=== PATIENT | male | born 1935 | race Caucasian/White ===

== ENCOUNTER 2023-02-03 14:06 | Inpatient (IN) | payer OTHER ==
[~2023-02-03] VITALS: Ht 177.8 cm; Wt 89.4 kg
[2023-02-03 15:24] LABS: EOSINOPHILS % (AUTO) 0.1 % (0.0-6.0); HEMATOCRIT 25 % (39-51); HEMOGLOBIN 7.7 g/dL (13.5-17.5); LYMPHOCYTES # (AUTO) 1.2 K/uL (0.8-4.8); LYMPHOCYTES % (AUTO) 7.8 % (20.0-44.0); MEAN CORPUSCULAR HEMOGLOBIN 31 PG (26.0-33.0); MEAN CORPUSCULAR HGB CONC 31 g/dl (31.0-36.0); MEAN CORPUSCULAR VOLUME 100 fL (80-96); MONOCYTES % (AUTO) 20.1 % (2.0-12.0); NEUTROPHILS # (AUTO) 10.8 K/uL (1.8-8.9); RED BLOOD CELL COUNT(AUTO) 2.48 MIL/uL (4.5-6.0); RED CELL DISTRIBUTION WIDTH 24.1 % (11.5-15.0); WHITE BLOOD COUNT (AUTO) 14.9 K/uL (4.3-11.0)
[2023-02-03 15:27] LABS: PLATELET COUNT (AUTO) 35 K/uL (150-450)
[2023-02-03 15:35] LABS: INR 2.86 (0.91-1.10); PARTIAL THROMBOPLASTIN TIME 34.7 SEC (24.3-34.3); PROTHROMBIN TIME 28.3 SECS (9.2-11.1)
[2023-02-03 15:44] LABS: CALCIUM, SERUM 8.6 mg/dL (8.5-10.1); CARBON DIOXIDE 13 mmol/L (21-32); CHLORIDE 102 mmol/L (98-107); CREATININE 2.8 mg/dL (0.6-1.3); GLUCOSE 53 mg/dL (74-106); SODIUM SERUM 139 mmol/L (136-145)
[2023-02-03 15:54] LABS: LACTIC ACID 6.1 mmol/L (0.4-2.0)
[2023-02-03 16:04] LABS: ALANINE AMINOTRANSFERASE 576 U/L (12-78); ALBUMIN 3.5 g/dL (3.4-5.0); ALKALINE PHOSPHATASE 208 U/L (46-116); BILIRUBIN,DIRECT 1.5 mg/dL (0.0-0.2); BILIRUBIN,TOTAL 3.5 mg/dL (0.2-1.0); TOTAL PROTEIN, SERUM 6.7 g/dL (6.4-8.2); UREA NITROGEN, BLOOD 85 mg/dL (7-18)
[2023-02-03 16:08] LABS: ASPARTATE AMINOTRANSFERASE > 999 U/L (15-37)
[2023-02-03] MEDS ORDERED: VANCOMYCIN 1 GM in IV D5W 250 ML IV ONE (16:30)
[2023-02-03] MEDS ORDERED: IV NS 0.9% 1,000 ML BAG IV ONE (16:30)
[2023-02-03] MEDS ORDERED: CEFEPIME 1 GM in IV D5W 50 ML IV ONE (16:30)
[2023-02-03 18:12] LABS: SERUM AMMONIA 44 umol/L (11-32)
[2023-02-03 18:16] LABS: ACETAMINOPHEN 0 ug/ml (10-30)
[2023-02-03 18:27] LABS: BAND % (MANUAL) 6 % (0.0-5.0); LYMPHOCYTES % (MANUAL) 6 % (16-48); METAMYELOCYTES % 2 % (0-0); MONOCYTES % (MANUAL) 16 % (0-11.0); MYELOCYTES % 3 % (0-0); NEUTROPHILS % (MANUAL) 67 (42-76); PLATELET ESTIMATE DECREASED
[2023-02-03 18:29] LABS: ANISOCYTOSIS 2+
[2023-02-03] MEDS ORDERED: CEFEPIME 1 GM VIAL IV SCH (23:30)
[2023-02-03] MEDS ORDERED: IV NS 0.9% 1,000 ML BAG IV PRN (23:30)
[2023-02-03] MEDS ORDERED: SODIUM POLYSTYRENE SULFONATE 15 G/60 ML BOTTLE PO STA (23:35)
[2023-02-03] MEDS ORDERED: IV NS 0.9% 1,000 ML IV PRN (23:45)
[2023-02-03 23:53] LABS: CARBON DIOXIDE 15 mmol/L (21-32); CHLORIDE 104 mmol/L (98-107); CREATININE 2.8 mg/dL (0.6-1.3); GLUCOSE 79 mg/dL (74-106); POTASSIUM 5.9 mmol/L (3.5-5.1); SODIUM SERUM 137 mmol/L (136-145)
[2023-02-04] VITALS (25 sets, daily range): BP systolic 96–120; BP diastolic 62–101; TEMP 93–97.5; O2SAT 75–100
[2023-02-04] MEDS ORDERED: IV NS 0.9% 1,000 ML BAG IV PRN
[2023-02-04] MEDS ORDERED: Calcium Gluconate 0.465 MEQ/ML VIAL IV ONE
[2023-02-04] MEDS ORDERED: MORPHINE SULFATE INJ 4 MG/ML DISP.SYRIN IV PRN
[2023-02-04] MEDS ORDERED: MORPHINE SULFATE INJ 2 MG/ML DISP.SYRIN IV PRN
[2023-02-04] MEDS ORDERED: INSULIN REGULAR, HUMAN 100 UNIT/ML 10 ML VIAL IV ONE
[2023-02-04] MEDS ORDERED: ONDANSETRON HCL/PF 4 MG/2 ML VIAL IV PRN
[2023-02-04 00:14] LABS: UREA NITROGEN, BLOOD 89 mg/dL (7-18)
[2023-02-04] MEDS ORDERED: SODIUM POLYSTYRENE SULFONATE 15 G/60 ML BOTTLE PO ONE (00:30)
[2023-02-04] MEDS ORDERED: DEXTROSE 50%-WATER 50 ML DISP.SYRIN IVP ONE ×4 (02:00→21:30)
[2023-02-04 03:57] LABS: BASOPHILS # (AUTO) 0.1 K/uL (0.0-0.2); BASOPHILS % (AUTO) 0.5 % (0.0-2.0); EOSINOPHILS # (AUTO) 0.2 K/uL (0.0-0.7); EOSINOPHILS % (AUTO) 0.9 % (0.0-6.0); HEMATOCRIT 22 % (39-51); LYMPHOCYTES # (AUTO) 0.8 K/uL (0.8-4.8); LYMPHOCYTES % (AUTO) 4.6 % (20.0-44.0); MEAN CORPUSCULAR HEMOGLOBIN 31 PG (26.0-33.0); MEAN CORPUSCULAR HGB CONC 31 g/dl (31.0-36.0); MEAN CORPUSCULAR VOLUME 100 fL (80-96); MONOCYTES # (AUTO) 2.4 K/uL (0.1-1.30); MONOCYTES % (AUTO) 13.4 % (2.0-12.0); NEUTROPHILS # (AUTO) 14.1 K/uL (1.8-8.9); NEUTROPHILS % (AUTO) 80.6 % (43.0-81.0); RED BLOOD CELL COUNT(AUTO) 2.24 MIL/uL (4.5-6.0); RED CELL DISTRIBUTION WIDTH 24.1 % (11.5-15.0); WHITE BLOOD COUNT (AUTO) 17.6 K/uL (4.3-11.0)
[2023-02-04 04:02] LABS: HEMOGLOBIN 6.9 g/dL (13.5-17.5)
[2023-02-04 04:03] LABS: PLATELET COUNT (AUTO) 34 K/uL (150-450)
[2023-02-04] MEDS: BLOOD SUGAR DIAGNOSTIC 1 EACH STRIP IN SCH ×6 (04:11→21:38)
[2023-02-04 04:16] LABS: ALANINE AMINOTRANSFERASE 700 U/L (12-78); ALBUMIN 3.2 g/dL (3.4-5.0); ALKALINE PHOSPHATASE 219 U/L (46-116); BILIRUBIN,TOTAL 3.4 mg/dL (0.2-1.0); CALCIUM, SERUM 7.8 mg/dL (8.5-10.1); CARBON DIOXIDE 18 mmol/L (21-32); CHLORIDE 103 mmol/L (98-107); CREATININE 2.9 mg/dL (0.6-1.3); GLUCOSE 180 mg/dL (74-106); POTASSIUM 5.6 mmol/L (3.5-5.1); SODIUM SERUM 138 mmol/L (136-145); TOTAL PROTEIN, SERUM 6.2 g/dL (6.4-8.2)
[2023-02-04 04:25] LABS: UREA NITROGEN, BLOOD 93 mg/dL (7-18)
[2023-02-04] MEDS: IV D5W 1,000 ML IV PRN ×2 (04:40→19:05)
[2023-02-04] MEDS ORDERED: CEFEPIME 1 GM in IV D5W 50 ML IV SCH (05:00)
[2023-02-04] MEDS ORDERED: CEFEPIME 1 GM VIAL ONE (05:28)
[2023-02-04 06:40] LABS: BAND % (MANUAL) 20 % (0.0-5.0); LYMPHOCYTES % (MANUAL) 6 % (16-48); MONOCYTES % (MANUAL) 7 % (0-11.0); MYELOCYTES % 2 % (0-0); NEUTROPHILS % (MANUAL) 65 (42-76); PLATELET ESTIMATE DECREASED
[2023-02-04 06:41] LABS: OVALOCYTES 1+
[2023-02-04] MEDS ORDERED: FUROSEMIDE 20 MG/2 ML VIAL IV ONE (10:00)
[2023-02-04 10:07] LABS: ABG BASE EXCESS -12.5 mmol/L; ABG OXYGEN SATURATION 99.6 % (92.0-98.5); ABG PH 7.293 (7.350-7.450); ABG PO2 323.4 mmHg (75.0-100.0); AaDO2 362.6 mmHg; COHb 0.1 % (0.5-1.5); MetHb 0.3 % (0.0-1.5); O2Hb 99.2 % (94.0-97.0); SITE, ABG Left Radial; VENT MODE, BG 15L NRB
[2023-02-04 10:15] LABS: IRON, SERUM 211 ug/dl (50-175); TOTAL IRON BINDING CAPACITY 214 ug/dl (250-450)
[2023-02-04] MEDS: TAMSULOSIN 0.4 MG CAP.SR.24H PO SCH (10:30)
[2023-02-04] MEDS: ACETYLCYSTEINE 10% SOLN 400 MG/4 ML VIAL NEB SCH ×4 (10:30→23:14)
[2023-02-04] MEDS: FINASTERIDE (5 MG) 5 MG TABLET PO SCH (10:30)
[2023-02-04 10:38] LABS: ASPARTATE AMINOTRANSFERASE > 1000 U/L (15-37)
[2023-02-04 10:50] LABS: FERRITIN 12447 ng/mL (8-388)
[2023-02-04 12:07] LABS: PROSTATE SPECIFIC ANTIGEN SCR 1981.7 ng/mL (0.00-4.00)
[2023-02-04] MEDS ORDERED: SODIUM POLYSTYRENE SULF. PWD 15 GM UDC PO ONE (13:00)
[2023-02-04] MEDS: ALBUTEROL HALF STRENGTH 1.25 MG/3 ML VIAL.NEB NEB SCH ×3 (13:28→19:58)
[2023-02-04] MEDS: IPRATROPIUM NEB FS 0.5 MG/2.5 ML AMPUL.NEB NEB SCH ×3 (13:28→19:58)
[2023-02-04] MEDS: CEFEPIME 1 GM in IV D5W 50 ML IV SCH ×2 (13:46→21:12)
[2023-02-04 15:50] LABS: CALCIUM, SERUM 7.4 mg/dL (8.5-10.1); CARBON DIOXIDE 16 mmol/L (21-32); CHLORIDE 105 mmol/L (98-107); CREATININE 3.3 mg/dL (0.6-1.3); GLUCOSE 226 mg/dL (74-106); POTASSIUM 5.6 mmol/L (3.5-5.1); SODIUM SERUM 139 mmol/L (136-145)
[2023-02-04 16:02] LABS: UREA NITROGEN, BLOOD 100 mg/dL (7-18)
[2023-02-04 19:50] LABS: ABG BASE EXCESS -11.9 mmol/L; ABG OXYGEN SATURATION 97.8 % (92.0-98.5); ABG PCO2 35.9 mmHg (35.0-45.0); ABG PH 7.229 (7.350-7.450); ABG PO2 140.8 mmHg (75.0-100.0); ABG TOTAL HEMOGLOBIN 9.1 G/dL (13.5-18.0); AaDO2 189.8 mmHg; COHb 0.3 % (0.5-1.5); MetHb 0.4 % (0.0-1.5); O2Hb 97.1 % (94.0-97.0); SITE, ABG Left Radial; VENT MODE, BG SM
[2023-02-04] MEDS ORDERED: CEFEPIME 2 GM in IV D5W 100 ML IV SCH (21:00)
[2023-02-04] MEDS ORDERED: DEXTROSE 50%-WATER 50 ML DISP.SYRIN ONE (21:27)
[2023-02-04] MEDS: ALBUTEROL FS 2.5 MG/0.5 ML VIAL.NEB NEB PRN (23:14)
[2023-02-05] VITALS (53 sets, daily range): BP systolic 82–126; BP diastolic 57–94; TEMP 96.8–98; O2SAT 80–100
[2023-02-05] MEDS: BLOOD SUGAR DIAGNOSTIC 1 EACH STRIP IN SCH ×6 (01:09→21:08)
[2023-02-05] MEDS: IPRATROPIUM NEB FS 0.5 MG/2.5 ML AMPUL.NEB NEB SCH ×4 (01:19→19:25)
[2023-02-05] MEDS: ALBUTEROL HALF STRENGTH 1.25 MG/3 ML VIAL.NEB NEB SCH ×4 (01:19→19:25)
[2023-02-05 04:38] LABS: BASOPHILS # (AUTO) 0.1 K/uL (0.0-0.2); BASOPHILS % (AUTO) 0.5 % (0.0-2.0); EOSINOPHILS # (AUTO) 0.1 K/uL (0.0-0.7); EOSINOPHILS % (AUTO) 0.6 % (0.0-6.0); HEMATOCRIT 24 % (39-51); HEMOGLOBIN 7.6 g/dL (13.5-17.5); LYMPHOCYTES % (AUTO) 6.8 % (20.0-44.0); MEAN CORPUSCULAR HEMOGLOBIN 31 PG (26.0-33.0); MEAN CORPUSCULAR HGB CONC 31 g/dl (31.0-36.0); MEAN CORPUSCULAR VOLUME 97 fL (80-96); MONOCYTES # (AUTO) 0.5 K/uL (0.1-1.30); MONOCYTES % (AUTO) 3.1 % (2.0-12.0); RED BLOOD CELL COUNT(AUTO) 2.49 MIL/uL (4.5-6.0); RED CELL DISTRIBUTION WIDTH 22.2 % (11.5-15.0); WHITE BLOOD COUNT (AUTO) 14.6 K/uL (4.3-11.0)
[2023-02-05 04:57] LABS: ALANINE AMINOTRANSFERASE 694 U/L (12-78); ALBUMIN 2.9 g/dL (3.4-5.0); ALKALINE PHOSPHATASE 224 U/L (46-116); BILIRUBIN,TOTAL 2.9 mg/dL (0.2-1.0); CALCIUM, SERUM 6.7 mg/dL (8.5-10.1); CARBON DIOXIDE 16 mmol/L (21-32); CHLORIDE 103 mmol/L (98-107); CREATININE 3.2 mg/dL (0.6-1.3); GLUCOSE 129 mg/dL (74-106); MAGNESIUM 2.6 mg/dL (1.8-2.4); SODIUM SERUM 138 mmol/L (136-145); TOTAL PROTEIN, SERUM 5.8 g/dL (6.4-8.2)
[2023-02-05 05:03] LABS: PLATELET COUNT (AUTO) 23 K/uL (150-450)
[2023-02-05] MEDS: CEFEPIME 1 GM in IV D5W 50 ML IV SCH ×3 (05:09→21:08)
[2023-02-05 05:12] LABS: UREA NITROGEN, BLOOD 101 mg/dL (7-18)
[2023-02-05 05:13] LABS: ASPARTATE AMINOTRANSFERASE > 1000 U/L (15-37); PHOSPHORUS 9.2 mg/dL (2.5-4.9)
[2023-02-05] MEDS: IV D5W 1,000 ML IV PRN (05:23)
[2023-02-05] MEDS ORDERED: VANCOMYCIN 0.75 GM in IV D5W 250 ML IV SCH (06:00)
[2023-02-05] MEDS: ALBUTEROL FS 2.5 MG/0.5 ML VIAL.NEB NEB PRN ×3 (07:23→08:00)
[2023-02-05] MEDS: ACETYLCYSTEINE 10% SOLN 400 MG/4 ML VIAL NEB SCH ×3 (07:23→23:21)
[2023-02-05 07:41] LABS: ANISOCYTOSIS 1+; BAND % (MANUAL) 24 % (0.0-5.0); LYMPHOCYTES % (MANUAL) 9 % (16-48); METAMYELOCYTES % 1 % (0-0); MONOCYTES % (MANUAL) 7 % (0-11.0); MYELOCYTES % 2 % (0-0); NEUTROPHILS % (MANUAL) 57 (42-76); OVALOCYTES 1+; PLATELET ESTIMATE DECREASED
[2023-02-05] MEDS: SODIUM BICARBONATE IV SCH ×2 (08:19→19:07)
[2023-02-05] MEDS: D5W IV SCH ×2 (08:19→19:07)
[2023-02-05] MEDS: TAMSULOSIN 0.4 MG CAP.SR.24H PO SCH (08:57)
[2023-02-05] MEDS: FINASTERIDE (5 MG) 5 MG TABLET PO SCH (08:58)
[2023-02-05] MEDS ORDERED: LORAZEPAM 1 MG TABLET PO PRN (10:30)
[2023-02-05 10:58] LABS: ABG BASE EXCESS -9.5 mmol/L; ABG PCO2 26.3 mmHg (35.0-45.0); ABG PH 7.365 (7.350-7.450); ABG PO2 99.6 mmHg (75.0-100.0); ABG TOTAL HEMOGLOBIN 8.3 G/dL (13.5-18.0); COHb 0.6 % (0.5-1.5); MetHb 0.2 % (0.0-1.5); O2Hb 96.2 % (94.0-97.0); SITE, ABG Right Femoral; VENT MODE, BG nasal cannula
[2023-02-05] MEDS ORDERED: AMIODARONE 150 MG in IV D5W 100 ML IV ONE (11:00)
[2023-02-05] MEDS: AMIODARONE 450 MG in IV D5W 241 ML IV PRN ×2 (11:45→21:11)
[2023-02-05] MEDS ORDERED: GLUCAGON,HUMAN RECOMBINANT 1 MG/VIAL VIAL IM ONE (14:00)
[2023-02-05] MEDS ORDERED: DEXTROSE 50%-WATER 50 ML DISP.SYRIN IVP ONE (14:30)
[2023-02-05 20:58] LABS: THYROID STIMULATING HORMONE 3.078 uIU/mL (0.358-3.74)
[2023-02-06] VITALS (32 sets, daily range): BP systolic 74–146; BP diastolic 44–86; TEMP 96.8–98.1; O2SAT 94–100
[2023-02-06] MEDS: BLOOD SUGAR DIAGNOSTIC 1 EACH STRIP IN SCH ×6 (01:01→20:26)
[2023-02-06] MEDS: IPRATROPIUM NEB FS 0.5 MG/2.5 ML AMPUL.NEB NEB SCH ×4 (01:11→19:12)
[2023-02-06] MEDS: ALBUTEROL HALF STRENGTH 1.25 MG/3 ML VIAL.NEB NEB SCH ×4 (01:11→19:12)
[2023-02-06 02:07] LABS: HBSAG SCREEN Negative (Negative); HEPATITIS A AB, IgM Negative (Negative); HEPATITIS B CORE AB, IgM Negative (Negative)
[2023-02-06] MEDS: CEFEPIME 1 GM in IV D5W 50 ML IV SCH ×3 (05:00→20:26)
[2023-02-06 05:22] LABS: CALCIUM, SERUM 6.5 mg/dL (8.5-10.1); CARBON DIOXIDE 18 mmol/L (21-32); CHLORIDE 98 mmol/L (98-107); CREATININE 3.1 mg/dL (0.6-1.3); GLUCOSE 140 mg/dL (74-106); POTASSIUM 4.5 mmol/L (3.5-5.1); SODIUM SERUM 135 mmol/L (136-145)
[2023-02-06 05:38] LABS: UREA NITROGEN, BLOOD 101 mg/dL (7-18)
[2023-02-06] MEDS: D5W IV SCH ×2 (06:46→16:15)
[2023-02-06] MEDS: SODIUM BICARBONATE IV SCH ×2 (06:46→16:15)
[2023-02-06] MEDS: ACETYLCYSTEINE 10% SOLN 400 MG/4 ML VIAL NEB SCH ×3 (07:08→23:00)
[2023-02-06] MEDS: Fluoxetine 10 mg capsule PO SCH (09:00)
[2023-02-06] MEDS: FINASTERIDE (5 MG) 5 MG TABLET PO SCH (09:00)
[2023-02-06] MEDS: TAMSULOSIN 0.4 MG CAP.SR.24H PO SCH (09:00)
[2023-02-06 10:07] LABS: CREATININE KINASE (CK),MB 59.6 ng/mL (0.0-10.4)
[2023-02-06 10:50] LABS: APPEARANCE,URINE CLEAR (CLEAR); BILIRUBIN,URINE NEGATIVE (NEGATIVE); BLOOD, URINE 2+ Ery/uL (NEGATIVE); COLOR,URINE YELLOW (YELLOW); KETONES,URINE TRACE mg/dL (NEGATIVE); LEUKOCYTE ESTERASE ,URINE NEGATIVE (NEGATIVE); NITRITE, URINE NEGATIVE (NEGATIVE); PH,URINE 5.5 (5.0-8.0); PROTEIN,URINE 1+ mg/dl (NEGATIVE); UGLUCOSE NEGATIVE (NEGATIVE); UROBILINOGEN,URINE 0.2 EU/dL (0.2)
[2023-02-06 11:11] LABS: CREATININE, URINE 72.8 MG/DL (30.0-125.0); URINE TOTAL PROTEIN 74.5 mg/dL (0-11.9)
[2023-02-06 11:27] LABS: BASOPHILS # (AUTO) 0.1 K/uL (0.0-0.2); BASOPHILS % (AUTO) 0.5 % (0.0-2.0); EOSINOPHILS # (AUTO) 0.1 K/uL (0.0-0.7); EOSINOPHILS % (AUTO) 0.7 % (0.0-6.0); HEMATOCRIT 23 % (39-51); HEMOGLOBIN 7.2 g/dL (13.5-17.5); LYMPHOCYTES # (AUTO) 0.8 K/uL (0.8-4.8); LYMPHOCYTES % (AUTO) 5.5 % (20.0-44.0); MEAN CORPUSCULAR HEMOGLOBIN 31 PG (26.0-33.0); MEAN CORPUSCULAR HGB CONC 31 g/dl (31.0-36.0); MEAN CORPUSCULAR VOLUME 99 fL (80-96); MONOCYTES # (AUTO) 0.3 K/uL (0.1-1.30); MONOCYTES % (AUTO) 2.3 % (2.0-12.0); NEUTROPHILS # (AUTO) 13.7 K/uL (1.8-8.9); RED BLOOD CELL COUNT(AUTO) 2.32 MIL/uL (4.5-6.0); RED CELL DISTRIBUTION WIDTH 23.1 % (11.5-15.0)
[2023-02-06 11:30] LABS: PLATELET COUNT (AUTO) 15 K/uL (150-450)
[2023-02-06 12:00] LABS: ADD URINE CULTURE NO; BACTERIA,URINE 1+ /HPF (None Seen); MUCUS,URINE Few /LPF (None Seen); SQUAMOUS EPITHELIAL CELL,UR None Seen /HPF (None Seen); WBC,URINE NONE SEEN /HPF (0-3)
[2023-02-06 12:09] LABS: BAND % (MANUAL) 14 % (0.0-5.0); LYMPHOCYTES % (MANUAL) 8 % (16-48); MONOCYTES % (MANUAL) 11 % (0-11.0); MYELOCYTES % 4 % (0-0); NEUTROPHILS % (MANUAL) 63 (42-76)
[2023-02-06 12:10] LABS: ANISOCYTOSIS 1+; PLATELET ESTIMATE DECREASED; TEAR DROP CELLS 1+
[2023-02-06 12:12] LABS: OVALOCYTES 1+
[2023-02-06] MEDS: DIGOXIN INJ 0.5 MG/2 ML AMPUL IV SCH ×2 (12:36→17:44)
[2023-02-06] MEDS: DEXTROSE 50%-WATER 50 ML DISP.SYRIN IVP PRN ×2 (17:57→20:26)
[2023-02-07] VITALS (33 sets, daily range): BP systolic 103–144; BP diastolic 54–104; TEMP 96.5–98; O2SAT 96–100
[2023-02-07] MEDS: DIGOXIN INJ 0.5 MG/2 ML AMPUL IV SCH (00:03)
[2023-02-07] MEDS: ALBUTEROL HALF STRENGTH 1.25 MG/3 ML VIAL.NEB NEB SCH ×4 (01:30→19:45)
[2023-02-07] MEDS: IPRATROPIUM NEB FS 0.5 MG/2.5 ML AMPUL.NEB NEB SCH ×4 (01:31→19:45)
[2023-02-07] MEDS: BLOOD SUGAR DIAGNOSTIC 1 EACH STRIP IN SCH ×6 (01:40→20:35)
[2023-02-07] MEDS: DEXTROSE 50%-WATER 50 ML DISP.SYRIN IVP PRN (01:40)
[2023-02-07] MEDS: D5W IV SCH (02:44)
[2023-02-07] MEDS: SODIUM BICARBONATE IV SCH ×3 (02:44→20:35)
[2023-02-07] MEDS: CEFEPIME 1 GM in IV D5W 50 ML IV SCH ×3 (05:17→20:35)
[2023-02-07 05:35] LABS: CARBON DIOXIDE 21 mmol/L (21-32); CHLORIDE 97 mmol/L (98-107); CREATININE 2.9 mg/dL (0.6-1.3); GLUCOSE 128 mg/dL (74-106); POTASSIUM 3.6 mmol/L (3.5-5.1); SODIUM SERUM 132 mmol/L (136-145)
[2023-02-07 05:36] LABS: UREA NITROGEN, BLOOD 103 mg/dL (7-18)
[2023-02-07 07:20] LABS: BASOPHILS % (AUTO) 0.1 % (0.0-2.0); EOSINOPHILS # (AUTO) 0.1 K/uL (0.0-0.7); EOSINOPHILS % (AUTO) 0.5 % (0.0-6.0); HEMATOCRIT 22 % (39-51); LYMPHOCYTES # (AUTO) 1.2 K/uL (0.8-4.8); LYMPHOCYTES % (AUTO) 7.6 % (20.0-44.0); MEAN CORPUSCULAR HEMOGLOBIN 31 PG (26.0-33.0); MEAN CORPUSCULAR HGB CONC 32 g/dl (31.0-36.0); MEAN CORPUSCULAR VOLUME 94 fL (80-96); MONOCYTES # (AUTO) 0.2 K/uL (0.1-1.30); NEUTROPHILS # (AUTO) 14.3 K/uL (1.8-8.9); NEUTROPHILS % (AUTO) 90.8 % (43.0-81.0); RED BLOOD CELL COUNT(AUTO) 2.29 MIL/uL (4.5-6.0); RED CELL DISTRIBUTION WIDTH 21.4 % (11.5-15.0); WHITE BLOOD COUNT (AUTO) 15.8 K/uL (4.3-11.0)
[2023-02-07 07:24] LABS: PLATELET COUNT (AUTO) 14 K/uL (150-450)
[2023-02-07] MEDS: ACETYLCYSTEINE 10% SOLN 400 MG/4 ML VIAL NEB SCH ×3 (08:05→23:07)
[2023-02-07] MEDS: TAMSULOSIN 0.4 MG CAP.SR.24H PO SCH (09:00)
[2023-02-07] MEDS: FINASTERIDE (5 MG) 5 MG TABLET PO SCH (09:00)
[2023-02-07] MEDS: Fluoxetine 10 mg capsule PO SCH (09:00)
[2023-02-07] MEDS: DEXTROSE IV SCH ×2 (09:35→20:35)
[2023-02-07 10:33] LABS: BAND % (MANUAL) 12 % (0.0-5.0); LYMPHOCYTES % (MANUAL) 8 % (16-48); MONOCYTES % (MANUAL) 4 % (0-11.0); MYELOCYTES % 2 % (0-0); NEUTROPHILS % (MANUAL) 74 (42-76); PLATELET ESTIMATE DECREASED
[2023-02-07 10:34] LABS: ANISOCYTOSIS 2+
[2023-02-07 10:35] LABS: OVALOCYTES 1+; TEAR DROP CELLS 1+
[2023-02-07 11:26] LABS: ABG BASE EXCESS -4.4 mmol/L; ABG OXYGEN SATURATION 97.3 % (92.0-98.5); ABG PCO2 36.1 mmHg (35.0-45.0); ABG PH 7.371 (7.350-7.450); ABG PO2 113.5 mmHg (75.0-100.0); AaDO2 43.5 mmHg; COHb 0.3 % (0.5-1.5); MetHb 0.2 % (0.0-1.5); O2Hb 96.8 % (94.0-97.0); VENT MODE, BG N/C
[2023-02-08] VITALS (38 sets, daily range): BP systolic 103–154; BP diastolic 59–89; TEMP 97.1–98.3; O2SAT 85–100
[2023-02-08] MEDS: BLOOD SUGAR DIAGNOSTIC 1 EACH STRIP IN SCH ×6 (00:25→21:10)
[2023-02-08] MEDS: ALBUTEROL HALF STRENGTH 1.25 MG/3 ML VIAL.NEB NEB SCH ×4 (00:49→19:37)
[2023-02-08] MEDS: IPRATROPIUM NEB FS 0.5 MG/2.5 ML AMPUL.NEB NEB SCH ×4 (00:49→19:37)
[2023-02-08] MEDS: CEFEPIME 1 GM in IV D5W 50 ML IV SCH (04:52)
[2023-02-08] MEDS: SODIUM BICARBONATE IV SCH ×2 (06:30→18:14)
[2023-02-08] MEDS: DEXTROSE IV SCH ×2 (06:30→18:14)
[2023-02-08 06:33] LABS: CARBON DIOXIDE 21 mmol/L (21-32); CHLORIDE 96 mmol/L (98-107); CREATININE 2.9 mg/dL (0.6-1.3); GLUCOSE 129 mg/dL (74-106); SODIUM SERUM 131 mmol/L (136-145)
[2023-02-08 07:05] LABS: UREA NITROGEN, BLOOD 108 mg/dL (7-18)
[2023-02-08] MEDS: ACETYLCYSTEINE 10% SOLN 400 MG/4 ML VIAL NEB SCH ×3 (07:34→23:41)
[2023-02-08 07:57] LABS: EOSINOPHILS % (AUTO) 0.2 % (0.0-6.0); HEMATOCRIT 23 % (39-51); HEMOGLOBIN 7.5 g/dL (13.5-17.5); MEAN CORPUSCULAR HEMOGLOBIN 31 PG (26.0-33.0); MEAN CORPUSCULAR HGB CONC 33 g/dl (31.0-36.0); MEAN CORPUSCULAR VOLUME 94 fL (80-96); MONOCYTES # (AUTO) 13.1 K/uL (0.1-1.30); MONOCYTES % (AUTO) 91.1 % (2.0-12.0); NEUTROPHILS # (AUTO) 0.2 K/uL (1.8-8.9); NEUTROPHILS % (AUTO) 1.7 % (43.0-81.0); RED BLOOD CELL COUNT(AUTO) 2.43 MIL/uL (4.5-6.0); RED CELL DISTRIBUTION WIDTH 21.3 % (11.5-15.0); WHITE BLOOD COUNT (AUTO) 14.4 K/uL (4.3-11.0)
[2023-02-08 08:07] LABS: PLATELET COUNT (AUTO) 30 K/uL (150-450)
[2023-02-08] MEDS: Fluoxetine 10 mg capsule PO SCH (09:00)
[2023-02-08] MEDS: TAMSULOSIN 0.4 MG CAP.SR.24H PO SCH (09:00)
[2023-02-08] MEDS: FINASTERIDE (5 MG) 5 MG TABLET PO SCH (09:00)
[2023-02-08] MEDS ORDERED: POTASSIUM CL. PREMIX PERIPHER. 50 ML IV SCH (10:00)
[2023-02-08 12:11] LABS: BAND % (MANUAL) 6 % (0.0-5.0); LYMPHOCYTES % (MANUAL) 8 % (16-48); MONOCYTES % (MANUAL) 21 % (0-11.0); NEUTROPHILS % (MANUAL) 65 (42-76)
[2023-02-08 12:13] LABS: ANISOCYTOSIS 2+; OVALOCYTES 1+; PLATELET ESTIMATE DECREASED
[2023-02-08] MEDS ORDERED: CEFEPIME 2 GM in IV D5W 100 ML IV SCH (15:00)
[2023-02-09] VITALS (32 sets, daily range): BP systolic 99–141; BP diastolic 50–114; TEMP 97–98.2; O2SAT 77–100
[2023-02-09] MEDS: IPRATROPIUM NEB FS 0.5 MG/2.5 ML AMPUL.NEB NEB SCH ×4 (01:22→19:47)
[2023-02-09] MEDS: ALBUTEROL HALF STRENGTH 1.25 MG/3 ML VIAL.NEB NEB SCH ×4 (01:22→19:47)
[2023-02-09] MEDS: BLOOD SUGAR DIAGNOSTIC 1 EACH STRIP IN SCH ×6 (01:26→21:21)
[2023-02-09] MEDS: DEXTROSE IV SCH ×2 (03:40→15:29)
[2023-02-09] MEDS: SODIUM BICARBONATE IV SCH ×2 (03:40→15:29)
[2023-02-09 06:17] LABS: CALCIUM, SERUM 7.3 mg/dL (8.5-10.1); CARBON DIOXIDE 24 mmol/L (21-32); CHLORIDE 92 mmol/L (98-107); CREATININE 3.2 mg/dL (0.6-1.3); GLUCOSE 207 mg/dL (74-106); SODIUM SERUM 130 mmol/L (136-145)
[2023-02-09 06:42] LABS: UREA NITROGEN, BLOOD 110 mg/dL (7-18)
[2023-02-09] MEDS: ACETYLCYSTEINE 10% SOLN 400 MG/4 ML VIAL NEB SCH ×3 (06:51→23:35)
[2023-02-09] MEDS: Fluoxetine 10 mg capsule PO SCH (08:17)
[2023-02-09] MEDS: TAMSULOSIN 0.4 MG CAP.SR.24H PO SCH (08:17)
[2023-02-09] MEDS: FINASTERIDE (5 MG) 5 MG TABLET PO SCH (08:17)
[2023-02-09 09:57] LABS: BASOPHILS % (AUTO) 0.2 % (0.0-2.0); EOSINOPHILS # (AUTO) 0.1 K/uL (0.0-0.7); EOSINOPHILS % (AUTO) 0.8 % (0.0-6.0); HEMATOCRIT 24 % (39-51); HEMOGLOBIN 7.8 g/dL (13.5-17.5); LYMPHOCYTES # (AUTO) 1.3 K/uL (0.8-4.8); LYMPHOCYTES % (AUTO) 9.4 % (20.0-44.0); MEAN CORPUSCULAR HEMOGLOBIN 30 PG (26.0-33.0); MEAN CORPUSCULAR HGB CONC 33 g/dl (31.0-36.0); MEAN CORPUSCULAR VOLUME 93 fL (80-96); MONOCYTES # (AUTO) 1.3 K/uL (0.1-1.30); MONOCYTES % (AUTO) 9.8 % (2.0-12.0); NEUTROPHILS # (AUTO) 10.8 K/uL (1.8-8.9); NEUTROPHILS % (AUTO) 79.8 % (43.0-81.0); RED BLOOD CELL COUNT(AUTO) 2.57 MIL/uL (4.5-6.0); RED CELL DISTRIBUTION WIDTH 21.6 % (11.5-15.0); WHITE BLOOD COUNT (AUTO) 13.5 K/uL (4.3-11.0)
[2023-02-09 10:05] LABS: PLATELET COUNT (AUTO) 33 K/uL (150-450)
[2023-02-09 10:28] LABS: BAND % (MANUAL) 3 % (0.0-5.0); LYMPHOCYTES % (MANUAL) 3 % (16-48); MONOCYTES % (MANUAL) 20 % (0-11.0); MYELOCYTES % 4 % (0-0); NEUTROPHILS % (MANUAL) 70 (42-76); PLATELET ESTIMATE DECREASED
[2023-02-09 10:29] LABS: ANISOCYTOSIS 1+; OVALOCYTES 1+
[2023-02-09] MEDS: POTASSIUM CL. PREMIX PERIPHER. 50 ML IV SCH ×4 (12:36→15:32)
[2023-02-09] MEDS ORDERED: CEFEPIME 1 GM in IV D5W 50 ML IV SCH (15:00)
[2023-02-10] VITALS (31 sets, daily range): BP systolic 97–143; BP diastolic 56–83; TEMP 97–97.8; O2SAT 91–100
[2023-02-10] MEDS: SODIUM BICARBONATE IV SCH ×3 (00:35→19:58)
[2023-02-10] MEDS: DEXTROSE IV SCH ×3 (00:35→19:58)
[2023-02-10] MEDS: BLOOD SUGAR DIAGNOSTIC 1 EACH STRIP IN SCH ×6 (01:08→20:39)
[2023-02-10] MEDS: IPRATROPIUM NEB FS 0.5 MG/2.5 ML AMPUL.NEB NEB SCH ×4 (01:50→19:50)
[2023-02-10] MEDS: ALBUTEROL HALF STRENGTH 1.25 MG/3 ML VIAL.NEB NEB SCH ×4 (01:50→19:50)
[2023-02-10 05:11] LABS: CALCIUM, SERUM 7.9 mg/dL (8.5-10.1); CARBON DIOXIDE 28 mmol/L (21-32); CHLORIDE 96 mmol/L (98-107); CREATININE 2.7 mg/dL (0.6-1.3); GLUCOSE 141 mg/dL (74-106); SODIUM SERUM 133 mmol/L (136-145); UREA NITROGEN, BLOOD 73 mg/dL (7-18)
[2023-02-10 05:14] LABS: BASOPHILS % (AUTO) 0.1 % (0.0-2.0); EOSINOPHILS # (AUTO) 0.1 K/uL (0.0-0.7); EOSINOPHILS % (AUTO) 0.5 % (0.0-6.0); HEMATOCRIT 23 % (39-51); HEMOGLOBIN 7.5 g/dL (13.5-17.5); LYMPHOCYTES # (AUTO) 1.2 K/uL (0.8-4.8); LYMPHOCYTES % (AUTO) 9.8 % (20.0-44.0); MEAN CORPUSCULAR HEMOGLOBIN 31 PG (26.0-33.0); MEAN CORPUSCULAR HGB CONC 33 g/dl (31.0-36.0); MEAN CORPUSCULAR VOLUME 93 fL (80-96); MONOCYTES # (AUTO) 0.7 K/uL (0.1-1.30); MONOCYTES % (AUTO) 5.9 % (2.0-12.0); NEUTROPHILS # (AUTO) 10.4 K/uL (1.8-8.9); NEUTROPHILS % (AUTO) 83.7 % (43.0-81.0); RED BLOOD CELL COUNT(AUTO) 2.42 MIL/uL (4.5-6.0); RED CELL DISTRIBUTION WIDTH 21.1 % (11.5-15.0); WHITE BLOOD COUNT (AUTO) 12.4 K/uL (4.3-11.0)
[2023-02-10 05:16] LABS: PLATELET COUNT (AUTO) 19 K/uL (150-450)
[2023-02-10 05:37] LABS: POTASSIUM 2.5 mmol/L (3.5-5.1)
[2023-02-10] MEDS: ACETYLCYSTEINE 10% SOLN 400 MG/4 ML VIAL NEB SCH ×3 (07:03→23:51)
[2023-02-10 07:25] LABS: BAND % (MANUAL) 8 % (0.0-5.0); LYMPHOCYTES % (MANUAL) 11 % (16-48); MONOCYTES % (MANUAL) 13 % (0-11.0); NEUTROPHILS % (MANUAL) 68 (42-76)
[2023-02-10 07:26] LABS: ANISOCYTOSIS 2+; PLATELET ESTIMATE DECREASED
[2023-02-10 07:28] LABS: HYPOCHROMASIA 1+
[2023-02-10 07:29] LABS: TEAR DROP CELLS 1+
[2023-02-10] MEDS: FINASTERIDE (5 MG) 5 MG TABLET PO SCH (08:13)
[2023-02-10] MEDS: TAMSULOSIN 0.4 MG CAP.SR.24H PO SCH (08:13)
[2023-02-10] MEDS: Fluoxetine 10 mg capsule PO SCH (08:13)
[2023-02-10 08:52] LABS: ABG BASE EXCESS 1.6 mmol/L; ABG OXYGEN SATURATION 96.2 % (92.0-98.5); ABG PCO2 38.7 mmHg (35.0-45.0); ABG PH 7.442 (7.350-7.450); ABG PO2 88.9 mmHg (75.0-100.0); ABG TOTAL HEMOGLOBIN 8.5 G/dL (13.5-18.0); AaDO2 65.1 mmHg; COHb 0.3 % (0.5-1.5); MetHb 0.3 % (0.0-1.5); O2Hb 95.6 % (94.0-97.0); SITE, ABG Right Radial
[2023-02-10] MEDS ORDERED: POTASSIUM CHLORIDE 20 MEQ TAB.PRT.SR PO SCH (09:00)
[2023-02-10] MEDS: POTASSIUM CL. PREMIX PERIPHER. 50 ML IV SCH ×10 (09:46→20:39)
[2023-02-11] VITALS (21 sets, daily range): BP systolic 111–138; BP diastolic 45–83; TEMP 97.2–98; O2SAT 90–100
[2023-02-11] MEDS: BLOOD SUGAR DIAGNOSTIC 1 EACH STRIP IN SCH ×6 (01:16→21:00)
[2023-02-11] MEDS: ALBUTEROL HALF STRENGTH 1.25 MG/3 ML VIAL.NEB NEB SCH ×4 (01:34→20:13)
[2023-02-11] MEDS: IPRATROPIUM NEB FS 0.5 MG/2.5 ML AMPUL.NEB NEB SCH ×4 (01:34→20:13)
[2023-02-11 04:26] LABS: CALCIUM, SERUM 8.2 mg/dL (8.5-10.1); CARBON DIOXIDE 30 mmol/L (21-32); CHLORIDE 98 mmol/L (98-107); CREATININE 2.3 mg/dL (0.6-1.3); GLUCOSE 138 mg/dL (74-106); POTASSIUM 3.3 mmol/L (3.5-5.1); SODIUM SERUM 134 mmol/L (136-145); UREA NITROGEN, BLOOD 52 mg/dL (7-18)
[2023-02-11] MEDS: SODIUM BICARBONATE IV SCH (06:52)
[2023-02-11] MEDS: DEXTROSE IV SCH (06:52)
[2023-02-11] MEDS: ACETYLCYSTEINE 10% SOLN 400 MG/4 ML VIAL NEB SCH ×3 (06:55→23:20)
[2023-02-11] MEDS: FINASTERIDE (5 MG) 5 MG TABLET PO SCH (09:20)
[2023-02-11] MEDS: TAMSULOSIN 0.4 MG CAP.SR.24H PO SCH (09:20)
[2023-02-11] MEDS: Fluoxetine 10 mg capsule PO SCH (09:20)
[2023-02-11 09:22] LABS: BASOPHILS % (AUTO) 0.1 % (0.0-2.0); EOSINOPHILS # (AUTO) 0.1 K/uL (0.0-0.7); EOSINOPHILS % (AUTO) 0.7 % (0.0-6.0); HEMATOCRIT 23 % (39-51); HEMOGLOBIN 7.4 g/dL (13.5-17.5); LYMPHOCYTES # (AUTO) 1.3 K/uL (0.8-4.8); LYMPHOCYTES % (AUTO) 12.1 % (20.0-44.0); MEAN CORPUSCULAR HEMOGLOBIN 31 PG (26.0-33.0); MEAN CORPUSCULAR HGB CONC 33 g/dl (31.0-36.0); MEAN CORPUSCULAR VOLUME 93 fL (80-96); MONOCYTES # (AUTO) 1.4 K/uL (0.1-1.30); MONOCYTES % (AUTO) 13.4 % (2.0-12.0); NEUTROPHILS # (AUTO) 7.9 K/uL (1.8-8.9); NEUTROPHILS % (AUTO) 73.7 % (43.0-81.0); RED BLOOD CELL COUNT(AUTO) 2.43 MIL/uL (4.5-6.0); RED CELL DISTRIBUTION WIDTH 21.5 % (11.5-15.0); WHITE BLOOD COUNT (AUTO) 10.8 K/uL (4.3-11.0)
[2023-02-11 09:28] LABS: PLATELET COUNT (AUTO) 17 K/uL (150-450)
[2023-02-11] MEDS: POTASSIUM CHLORIDE 20 MEQ TAB.PRT.SR PO SCH ×2 (10:00→11:00)
[2023-02-11] MEDS: POTASSIUM CL. PREMIX PERIPHER. 50 ML IV SCH ×4 (11:39→15:59)
[2023-02-11 12:47] LABS: ANISOCYTOSIS 1+; BAND % (MANUAL) 5 % (0.0-5.0); EOSINOPHILS % (MANUAL) 1 % (0-4); LYMPHOCYTES % (MANUAL) 9 % (16-48); MONOCYTES % (MANUAL) 19 % (0-11.0); MYELOCYTES % 3 % (0-0); NEUTROPHILS % (MANUAL) 63 (42-76)
[2023-02-12] VITALS (13 sets, daily range): BP systolic 124–150; BP diastolic 72–80; TEMP 97.5–97.9; O2SAT 95–100
[2023-02-12] MEDS: BLOOD SUGAR DIAGNOSTIC 1 EACH STRIP IN SCH ×6 (01:00→20:15)
[2023-02-12] MEDS: ALBUTEROL HALF STRENGTH 1.25 MG/3 ML VIAL.NEB NEB SCH ×4 (02:16→19:39)
[2023-02-12] MEDS: IPRATROPIUM NEB FS 0.5 MG/2.5 ML AMPUL.NEB NEB SCH ×4 (02:16→19:39)
[2023-02-12] MEDS: DEXTROSE 50%-WATER 50 ML DISP.SYRIN IVP PRN ×2 (06:42→20:15)
[2023-02-12 06:57] LABS: BASOPHILS % (AUTO) 0.1 % (0.0-2.0); EOSINOPHILS # (AUTO) 0.1 K/uL (0.0-0.7); EOSINOPHILS % (AUTO) 0.5 % (0.0-6.0); HEMATOCRIT 24 % (39-51); HEMOGLOBIN 8.1 g/dL (13.5-17.5); LYMPHOCYTES # (AUTO) 1.1 K/uL (0.8-4.8); LYMPHOCYTES % (AUTO) 10.1 % (20.0-44.0); MEAN CORPUSCULAR HEMOGLOBIN 31 PG (26.0-33.0); MEAN CORPUSCULAR HGB CONC 33 g/dl (31.0-36.0); MEAN CORPUSCULAR VOLUME 93 fL (80-96); MONOCYTES # (AUTO) 0.4 K/uL (0.1-1.30); MONOCYTES % (AUTO) 3.8 % (2.0-12.0); NEUTROPHILS # (AUTO) 9.3 K/uL (1.8-8.9); NEUTROPHILS % (AUTO) 85.5 % (43.0-81.0); RED BLOOD CELL COUNT(AUTO) 2.63 MIL/uL (4.5-6.0); RED CELL DISTRIBUTION WIDTH 21.8 % (11.5-15.0); WHITE BLOOD COUNT (AUTO) 10.9 K/uL (4.3-11.0)
[2023-02-12 07:00] LABS: CALCIUM, SERUM 8.3 mg/dL (8.5-10.1); CARBON DIOXIDE 28 mmol/L (21-32); CHLORIDE 96 mmol/L (98-107); CREATININE 2.8 mg/dL (0.6-1.3); GLUCOSE 72 mg/dL (74-106); POTASSIUM 4.1 mmol/L (3.5-5.1); SODIUM SERUM 134 mmol/L (136-145); UREA NITROGEN, BLOOD 57 mg/dL (7-18)
[2023-02-12 07:22] LABS: PLATELET COUNT (AUTO) 19 K/uL (150-450)
[2023-02-12] MEDS: ACETYLCYSTEINE 10% SOLN 400 MG/4 ML VIAL NEB SCH ×2 (07:37→15:30)
[2023-02-12 08:11] LABS: ANISOCYTOSIS 2+; BAND % (MANUAL) 12 % (0.0-5.0); EOSINOPHILS % (MANUAL) 2 % (0-4); LYMPHOCYTES % (MANUAL) 15 % (16-48); METAMYELOCYTES % 1 % (0-0); MONOCYTES % (MANUAL) 11 % (0-11.0); MYELOCYTES % 1 % (0-0); NEUTROPHILS % (MANUAL) 58 (42-76); PLATELET ESTIMATE DECREASED
[2023-02-12] MEDS: TAMSULOSIN 0.4 MG CAP.SR.24H PO SCH (08:40)
[2023-02-12] MEDS: FINASTERIDE (5 MG) 5 MG TABLET PO SCH (08:40)
[2023-02-12] MEDS: Fluoxetine 10 mg capsule PO SCH (08:41)
[2023-02-13] VITALS (15 sets, daily range): BP systolic 101–129; BP diastolic 53–112; TEMP 96.9–100.4; O2SAT 80–100
[2023-02-13] MEDS: ACETYLCYSTEINE 10% SOLN 400 MG/4 ML VIAL NEB SCH ×3 (00:04→14:31)
[2023-02-13] MEDS: ALBUTEROL HALF STRENGTH 1.25 MG/3 ML VIAL.NEB NEB SCH ×4 (02:01→20:33)
[2023-02-13] MEDS: IPRATROPIUM NEB FS 0.5 MG/2.5 ML AMPUL.NEB NEB SCH ×4 (02:01→20:33)
[2023-02-13] MEDS: BLOOD SUGAR DIAGNOSTIC 1 EACH STRIP IN SCH ×6 (02:04→20:45)
[2023-02-13] MEDS: DEXTROSE 50%-WATER 50 ML DISP.SYRIN IVP PRN (03:58)
[2023-02-13 07:27] LABS: BASOPHILS % (AUTO) 0.2 % (0.0-2.0); EOSINOPHILS # (AUTO) 0.1 K/uL (0.0-0.7); EOSINOPHILS % (AUTO) 0.5 % (0.0-6.0); HEMATOCRIT 23 % (39-51); HEMOGLOBIN 7.5 g/dL (13.5-17.5); LYMPHOCYTES # (AUTO) 1.2 K/uL (0.8-4.8); LYMPHOCYTES % (AUTO) 10.7 % (20.0-44.0); MEAN CORPUSCULAR HEMOGLOBIN 31 PG (26.0-33.0); MEAN CORPUSCULAR HGB CONC 33 g/dl (31.0-36.0); MEAN CORPUSCULAR VOLUME 94 fL (80-96); MONOCYTES % (AUTO) 0.1 % (2.0-12.0); NEUTROPHILS # (AUTO) 9.9 K/uL (1.8-8.9); NEUTROPHILS % (AUTO) 88.5 % (43.0-81.0); RED BLOOD CELL COUNT(AUTO) 2.46 MIL/uL (4.5-6.0); RED CELL DISTRIBUTION WIDTH 20.9 % (11.5-15.0); WHITE BLOOD COUNT (AUTO) 11.3 K/uL (4.3-11.0)
[2023-02-13 07:35] LABS: CALCIUM, SERUM 8.6 mg/dL (8.5-10.1); CARBON DIOXIDE 30 mmol/L (21-32); CHLORIDE 99 mmol/L (98-107); CREATININE 2.8 mg/dL (0.6-1.3); GLUCOSE 119 mg/dL (74-106); MAGNESIUM 2.1 mg/dL (1.8-2.4); PHOSPHORUS 4.9 mg/dL (2.5-4.9); POTASSIUM 3.7 mmol/L (3.5-5.1); SODIUM SERUM 138 mmol/L (136-145); UREA NITROGEN, BLOOD 46 mg/dL (7-18)
[2023-02-13 07:48] LABS: PLATELET COUNT (AUTO) 18 K/uL (150-450)
[2023-02-13] MEDS: Fluoxetine 10 mg capsule PO SCH (09:00)
[2023-02-13] MEDS: TAMSULOSIN 0.4 MG CAP.SR.24H PO SCH (09:00)
[2023-02-13] MEDS: FINASTERIDE (5 MG) 5 MG TABLET PO SCH (09:00)
[2023-02-13] MEDS ORDERED: NEPRO 1,000 ML BOTTLE GT PRN (11:00)
[2023-02-13] MEDS: METOPROLOL TARTRATE 50 MG TABLET PO SCH ×2 (13:47→20:29)
[2023-02-13 15:54] LABS: ANISOCYTOSIS 1+; BAND % (MANUAL) 7 % (0.0-5.0); LYMPHOCYTES % (MANUAL) 16 % (16-48); MONOCYTES % (MANUAL) 9 % (0-11.0); NEUTROPHILS % (MANUAL) 68 (42-76); PLATELET ESTIMATE DECRE; TARGET CELLS 1+
[2023-02-14] VITALS (18 sets, daily range): BP systolic 0–129; BP diastolic 0–85; TEMP 97.2–98.8; O2SAT 0–100
[2023-02-14] MEDS: BLOOD SUGAR DIAGNOSTIC 1 EACH STRIP IN SCH ×2 (00:26→05:16)
[2023-02-14] MEDS: IPRATROPIUM NEB FS 0.5 MG/2.5 ML AMPUL.NEB NEB SCH ×2 (02:13→07:35)
[2023-02-14] MEDS: ALBUTEROL HALF STRENGTH 1.25 MG/3 ML VIAL.NEB NEB SCH ×2 (02:13→07:35)
[2023-02-14] MEDS: ACETYLCYSTEINE 10% SOLN 400 MG/4 ML VIAL NEB SCH ×2 (02:14→07:35)
[2023-02-14 07:00] LABS: ABG BASE EXCESS 4.2 mmol/L; ABG OXYGEN SATURATION 96.6 % (92.0-98.5); ABG OXYGEN SATURATION 99.6 % (92.0-98.5); ABG PCO2 30.3 mmHg (35.0-45.0); ABG PCO2 77.4 mmHg (35.0-45.0); ABG PH 7.215 (7.350-7.450); ABG PH 7.558 (7.350-7.450); ABG PO2 105.1 mmHg (75.0-100.0); ABG PO2 253.9 mmHg (75.0-100.0); ABG TOTAL HEMOGLOBIN 8.1 G/dL (13.5-18.0); ABG TOTAL HEMOGLOBIN 8.5 G/dL (13.5-18.0); AaDO2 428.8 mmHg; AaDO2 530.5 mmHg; COHb 0.2 % (0.5-1.5); MetHb 0.4 % (0.0-1.5); SITE, ABG Right Radial; VENT MODE, BG NRB 100%; VENT MODE, BG NRB MASK
[2023-02-14] MEDS ORDERED: ROCURONIUM BROMIDE 50 MG/5 ML IV ONE (07:20)
[2023-02-14] MEDS ORDERED: EPINEPHRINE (1:10,000) SYRINGE 1 MG/10 ML DISP.SYRIN IVP ONE (07:20)
[2023-02-14] MEDS ORDERED: SODIUM BICARBONATE SYR 50 MEQ/50 ML DISP.SYRIN IV ONE (07:20)
[2023-02-14] MEDS ORDERED: ETOMIDATE 2 MG/ML VIAL IV ONE (07:20)
[2023-02-14] MEDS ORDERED: PHENYLEPHRINE 100 MG in IV NS 0.9% 240 ML IV PRN (08:00)
[2023-02-14] MEDS ORDERED: PROSOURCE / PROSTAT (PYXIS) 30 ML UDC PO SCH (09:00)
[2023-02-14] MEDS ORDERED: DC PROPOFOL WHEN EXTUBATED XX PRN (10:00)
[2023-02-16 01:58] LABS: ABG BASE EXCESS 0.9 mmol/L; ABG OXYGEN SATURATION 94.5 % (92.0-98.5); ABG PH 7.389 (7.350-7.450); ABG PO2 77.6 mmHg (75.0-100.0); ABG TOTAL HEMOGLOBIN 7.7 G/dL (13.5-18.0); AaDO2 591.4 mmHg; COHb 0.3 % (0.5-1.5); MetHb 0.2 % (0.0-1.5); PEEP,BG 0 cm H2O; SITE, ABG Left Femoral; VT, ABG 450 mL
== END 2023-02-14 11:45 | DRG 871 ==
LOC: ER 14:08 → MEDSG1 19:57 → TELE1 23:21 → TELE-TD 02-04 10:14 → ICU 02-04 10:29 → TELE-TD 02-11 07:39 → TELE1 02-12 06:22 → ICU 02-14 07:13
PROVIDERS: ADMIT Internal Medicine; ATTEND Internal Medicine
PROC: 30233N1 Transfusion of Nonautologous Red Blood Cells into Peripheral Vein, Percutaneous Approach (ICD-10-PCS; principal; 2023-02-04)
PROC: 05H933Z Insertion of Infusion Device into Right Brachial Vein, Percutaneous Approach (ICD-10-PCS; 2023-02-05)
PROC: 30233R1 Transfusion of Nonautologous Platelets into Peripheral Vein, Percutaneous Approach (ICD-10-PCS; 2023-02-06)
PROC: 06HY33Z Insertion of Infusion Device into Lower Vein, Percutaneous Approach (ICD-10-PCS; 2023-02-08)
PROC: 5A1D70Z Performance of Urinary Filtration, Intermittent, Less than 6 Hours Per Day (ICD-10-PCS; 2023-02-09)
PROC: 5A1935Z Respiratory Ventilation, Less than 24 Consecutive Hours (ICD-10-PCS; 2023-02-14)
PROC: 0BH17EZ Insertion of Endotracheal Airway into Trachea, Via Natural or Artificial Opening (ICD-10-PCS; 2023-02-14)
PROC: 5A2204Z Restoration of Cardiac Rhythm, Single (ICD-10-PCS; 2023-02-14)
DX: A41.9 Sepsis, unspecified organism (principal); E43 Unspecified severe protein-calorie malnutrition; I21.A1 Myocardial infarction type 2; J15.9 Unspecified bacterial pneumonia; K72.00 Acute and subacute hepatic failure without coma; J96.01 Acute respiratory failure with hypoxia; J69.0 Pneumonitis due to inhalation of food and vomit; N17.9 Acute kidney failure, unspecified; D68.59 Other primary thrombophilia; D61.818 Other pancytopenia; E87.20 Acidosis, unspecified; C79.51 Secondary malignant neoplasm of bone; D68.4 Acquired coagulation factor deficiency; E87.1 Hypo-osmolality and hyponatremia; E87.4 Mixed disorder of acid-base balance; G91.1 Obstructive hydrocephalus; J98.11 Atelectasis; M62.82 Rhabdomyolysis; N13.6 Pyonephrosis; I96 Gangrene, not elsewhere classified; Z66 Do not resuscitate; Z51.5 Encounter for palliative care; K80.20 Calculus of gallbladder without cholecystitis without obstruction; W01.0XXA Fall on same level from slipping, tripping and stumbling without subsequent striking against object, initial encounter; Y92.009 Unspecified place in unspecified non-institutional (private) residence as the place of occurrence of the external cause; Z91.158 Patient's noncompliance with renal dialysis for other reason; R13.10 Dysphagia, unspecified; R62.7 Adult failure to thrive; R33.8 Other retention of urine; E87.5 Hyperkalemia; N40.1 Benign prostatic hyperplasia with lower urinary tract symptoms; E86.0 Dehydration; R74.01 Elevation of levels of liver transaminase levels; I95.9 Hypotension, unspecified; D53.9 Nutritional anemia, unspecified; K74.60 Unspecified cirrhosis of liver; C61 Malignant neoplasm of prostate; E83.39 Other disorders of phosphorus metabolism; E87.6 Hypokalemia; F32.A Depression, unspecified; I50.9 Heart failure, unspecified; K40.20 Bilateral inguinal hernia, without obstruction or gangrene, not specified as recurrent; M89.8X9 Other specified disorders of bone, unspecified site; N18.9 Chronic kidney disease, unspecified; N13.9 Obstructive and reflux uropathy, unspecified; I48.91 Unspecified atrial fibrillation; R68.0 Hypothermia, not associated with low environmental temperature; L89.626 Pressure-induced deep tissue damage of left heel; L89.616 Pressure-induced deep tissue damage of right heel
CPT/HCPCS: 31720; 36410; 36415; 36600; 70450-TC; 71045-TC; 76700-TC; 76770-TC; 80048-TC; 80053-TC; 80076-TC; 80202-TC; 81001; 82140-TC; 82378; 82436-TC; 82550-TC; 82553; 82570-TC; 82607-TC; 82728-TC; 82803-TC; 82947-TC; 82962-TC; 83516; 83540-TC; 83605-TC; 83735-TC; 83935-TC; 84100-TC; 84133-TC; 84153-TC; 84154-TC; 84300-TC; 84439-TC; 84443-TC; 84484-TC; 85025-TC; 85730-TC; 86301; 86304; 86850-TC; 87040-TC; 87086-TC; 87186-TC; 90935-TC; 92526; 92611-TC; 93307-TC; 94799-TC; 97110-TC; 97112-TC; 97530-TC; 97535-TC; A4223; A4349; A4624; G0378; J0171; J0282; J0610; J0692; J1160; J1815; J1940; J2270; J3370; J3480; J3490; J7030; J7040; J7050; J7060; J7070; P9016; P9034